=== PATIENT | male | born 1975 | race Caucasian/White ===

== ENCOUNTER 2017-06-17 09:16 | Day surgery (SDC) | payer BC ==
[2017-06-12 09:55] VITALS: BMI 29.8
[2017-06-17] MEDS ORDERED: PROPOFOL 20 ML ONE ×3 (09:37)
[2017-06-17 11:11] VITALS: PULSE 79; TEMP 98
[2017-06-17 11:17] VITALS: BP 129/68
--- NOTE | 2017-06-22 17:47 | PATH ---
Surgical Pathology Report Patient Name: [facility]. Rec. #: [id number] /Age/Gender: 1975 (Age: 42) / M Account: [id number] Location: [facility] Taken: 06/17/2017 Received: 06/17/2017 Reported: 06/22/2017 Physicians: Tess Villagran M.D. Specimen(s) Received A: SECOND PORTION OF DUODENUM B: BX ANTRUM C: BX GE JUNCTION D: BX RIGHT COLON E: BX TRANSVERSE COLON F: BX DESCENDING POLYP G: BX COLON DESCENDING H: BX RECTUM Clinical History GERD, rule out colon cancer Gastric ulcer, gastric erosion Rule out celiac, gastritis, microscopic colitis Final Diagnosis A. SECOND PORTION OF DUODENUM, BIOPSY: DUODENAL MUCOSA WITH NO PATHOLOGIC FINDINGS. Note: Features suggestive of celiac disease are not identified in this biopsy. B. ANTRUM, BIOPSY: MODERATE CHRONIC GASTRITIS. IMMUNOSTAIN IS NEGATIVE FOR H. PYLORI ORGANISMS. C. GE JUNCTION, BIOPSY: GASTRIC CARDIA-TYPE MUCOSA SHOWING MILD CHRONIC INFLAMMATION. NO INTESTINAL METAPLASIA IS IDENTIFIED. D. RIGHT COLON, BIOPSY: COLONIC MUCOSA SHOWING BENIGN/REACTIVE LYMPHOID AGGREGATE. (SEE NOTE) E. TRANSVERSE, BIOPSY: COLONIC MUCOSA WITH NO PATHOLOGIC FINDINGS. (SEE NOTE) F. DESCENDING POLYP, BIOPSY: TUBULAR ADENOMA. G. DESCENDING, BIOPSY: COLONIC MUCOSA WITH NO PATHOLOGIC FINDINGS. (SEE NOTE) H. RECTUM, BIOPSY: COLONIC/RECTAL MUCOSA WITH NO PATHOLOGIC FINDINGS. (SEE NOTE) Note: Features suggestive of microscopic colitis are not identified in these colonic and rectal biopsies. Electronically Signed Lili Hart M.D. Gross Description A. Received in formalin, labeled "second portion duodenum" are 2 morley, irregular portions of soft tissue measuring 0.2 cm. in greatest dimension. The specimens are submitted in toto in one cassette. B. Received in formalin, labeled "antrum" are 2 morley, irregular portions of soft tissue measuring 0.2 cm. in greatest dimension. The specimens are submitted in toto in one cassette. C. Received in formalin, labeled "GE junction" is a morley, irregular portion of soft tissue measuring 0.3 cm. in greatest dimension. The specimen is submitted in toto in one cassette. D. Received in formalin, labeled "right colon" are 2 morley, irregular portions of soft tissue measuring 0.2-0.3 cm. in greatest dimension. The specimens are submitted in toto in one cassette. E. Received in formalin, labeled "transverse" is a morley, irregular portion of soft tissue measuring 0.4 cm. in greatest dimension. The specimen is submitted in toto in one cassette. F. Received in formalin, labeled "descending polyp" is a morley, irregular portion of soft tissue measuring 0.3 cm. in greatest dimension. The specimen is submitted in toto in one cassette. G. Received in formalin, labeled "descending" is a morley, irregular portion of soft tissue measuring 0.4 cm. in greatest dimension. The specimen is submitted in toto in one cassette. H. Received in formalin, labeled "rectum" are 2 morley, irregular portions of soft tissue measuring 0.2 cm. in greatest dimension. The specimens are submitted in toto in one cassette. [facility]06/17/2017 [facility]06/17/2017
== END 2017-06-17 11:15 | disposition home or self-care (01) ==
LOC: FASU-ENDO 09:16
PROVIDERS: ATTEND Internal Medicine Gastroenterology
PROC: 0DBK8ZX Excision of Ascending Colon, Via Natural or Artificial Opening Endoscopic, Diagnostic (ICD-10-PCS; 2017-06-17)
PROC: 0DB98ZX Excision of Duodenum, Via Natural or Artificial Opening Endoscopic, Diagnostic (ICD-10-PCS; 2017-06-17)
PROC: 0DB68ZX Excision of Stomach, Via Natural or Artificial Opening Endoscopic, Diagnostic (ICD-10-PCS; 2017-06-17)
PROC: 0DB58ZX Excision of Esophagus, Via Natural or Artificial Opening Endoscopic, Diagnostic (ICD-10-PCS; 2017-06-17)
PROC: 0DBM8ZX Excision of Descending Colon, Via Natural or Artificial Opening Endoscopic, Diagnostic (ICD-10-PCS; principal; 2017-06-17 10:06)
PROC: 0DBL8ZX Excision of Transverse Colon, Via Natural or Artificial Opening Endoscopic, Diagnostic (ICD-10-PCS; 2017-06-17 10:06)
DX: D12.4 Benign neoplasm of descending colon (principal); K64.8 Other hemorrhoids; K29.50 Unspecified chronic gastritis without bleeding; K20.9 Esophagitis, unspecified; R10.9 Unspecified abdominal pain; R19.7 Diarrhea, unspecified
CPT/HCPCS: 88305-TC; 88342-TC

== ENCOUNTER 2017-08-03 11:27 | Emergency (ER) | payer BC ==
[2017-08-03 11:47] VITALS: BP 155/92; PULSE 122; TEMP 97.8; BMI 31.1
--- NOTE | 2017-08-03 12:01 | PDOC ---
History of Present Illness <ShekharpatChristine - Last Filed: 08/03/17 13:47> - General History Source: Patient Exam Limitations: No Limitations - History of Present Illness Initial Comments: This is a 42 yo male with h/o epilepsy with grand mal seizures (on Lamictal and Onfe), recurrent left shoulder dislocation during seizures (surgically repaired years ago but re-injured) who presents BIBA s/p two onpo-ow-urxm seizures. 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 The first seizure reportedly lasted a minute, he had a mild postictal period lasting 5 minutes during which time EMS was called, then he had a second seizure lasting 2 minutes. The patient then had a much longer postictal period with worsened confusion, difficulty understanding people around him, and mild difficulty breathing. He did not receive any medications en route to the ED. Here in the ED he notes having a headache (which is normal for after his seizures), mild left head pain where he believes he struck his head on the ground, and left shoulder pain which is typical after he dislocates it. 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 His last seizure was in June and his neurologist subsequently broke his daily Onfe dose into BID dosing. Prior to June he had not had a seizure in a few years. He has otherwise been well lately without fever, chills, nausea, vomiting , diarrhea, changes in diet, or other symptoms. <Angelo,Mary - Last Filed: 08/03/17 15:31> - General Chief Complaint: Seizure Stated Complaint: SEIZURE Time Seen by Provider: 08/03/17 12:01 Past History <Christine Baker - Last Filed: 08/03/17 13:47> - Past Medical History Anemia: No Asthma: No Cancer: No Cardiac Disorders: No CVA: No COPD: No CHF: No Dementia: No Diabetes: No GI Disorders: No Disorders: No HTN: No Hypercholesterolemia: No Liver Disease: No Seizures: Yes Thyroid Disease: No - Surgical History Abdominal Surgery: No Appendectomy: No Cardiac Surgery: No Cholecystectomy: No Lung Surgery: No Neurologic Surgery: No Orthopedic Surgery: Yes (L knee, L shoulder arthroscopy) - Psycho/Social/Smoking Cessation Hx Smoking History: Never smoked Have you smoked in the past 12 months: No Hx Alcohol Use: No Drug/Substance Use Hx: No Substance Use Type: Alcohol, Prescribed Hx Substance Use Treatment: No <Demetrice Angelo - Last Filed: 08/03/17 15:31> - Past Medical History Allergies/Adverse Reactions: Allergies Allergy/AdvReac Type Severity Reaction Status Date / Time No Known Allergies Allergy Verified 06/12/17 09:57 Home Medications: Ambulatory Orders Clobazam [Onfi] 10 mg PO BID 06/12/17 Lamotrigine [Lamictal Xr] 300 mg PO BID 06/12/17 Oxycodone HCl [Roxicodone] 15 mg PO PRN PRN 06/12/17 Testosterone Enanthate 200 mg IM WEEKLY 06/12/17 Review of Systems - Review of Systems Able to Perform ROS?: Yes Constitutional: No: Chills, Fever, Unexplained wgt Loss HEENTM: No: Nose Congestion, Throat Pain Respiratory: Yes: Shortness of Breath (resolved). No: Cough Cardiac (ROS): No: Chest Pain, Palpitations ABD/GI: No: Constipated, Diarrhea, Nausea, Vomiting : No: Burning, Dysuria Musculoskeletal: No: Back Pain, Neck Pain Integumentary: No: Bruising, Rash Neurological: Yes: Headache (mild), Seizure (x2). No: Numbness, Tingling, Weakness, Dizziness Psychiatric: Yes: Stressors, Sleep Pattern Change Endocrine: No: Unexplained Weight Gain, Unexplained Weight Loss <Demetrice Angelo - Last Filed: 08/03/17 15:31> *Physical Exam - Vital Signs Last Vital Signs Temp Pulse Resp BP Pulse Ox 97.8 F 122 H 16 155/92 99 08/03/17 11:30 08/03/17 11:30 08/03/17 11:30 08/03/17 11:30 08/03/17 11:30 <Christine Baker - Last Filed: 08/03/17 13:47> - Vital Signs Last Vital Signs Temp Pulse Resp BP Pulse Ox 97.8 F 122 H 16 155/92 99 09/11/17 11:30 08/03/17 11:30 08/03/17 11:30 08/03/17 11:30 08/03/17 11:30 - Physical Exam General Appearance: Yes: Nourished, Appropriately Dressed, Other (appears mildly anxious/stressed). No: Apparent Distress HEENT: positive: EOMI, TANIA, Normal Voice, Hearing Grossly Normal. negative: Scleral Icterus (R), Scleral Icterus (L), Nasal Congestion Neck: positive: Trachea midline, Supple. negative: Tender, Rigid Respiratory/Chest: positive: Lungs Clear, Normal Breath Sounds. negative: Respiratory Distress, Crackles, Rhonchi, Stridor, Wheezing Cardiovascular: positive: Regular Rhythm, Tachycardia. negative: Murmur Gastrointestinal/Abdominal: positive: Normal Bowel Sounds, Soft, Protuberent. negative: Tender, Organomegaly, Pulsatile Mass, Guarding Musculoskeletal: positive: Normal Inspection. negative: Decreased Range of Motion, Vertebral Tenderness Extremity: positive: Normal Capillary Refill, Normal Inspection (left shoulder with well-healed surgical scar), Normal Range of Motion, Other (left posterior shoulder tenderness to palpation with decreased ROM stated due to pain). negative: Tender, Cyanosis Integumentary: positive: Normal Color, Dry, Warm. 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 negative: EOM Palsy, Facial Droop, Numbness, Sensory Deficit, Confused, Disoriented <Demetrice Angelo - Last Filed: 08/03/17 15:31> ED Treatment Course - LABORATORY CBC & Chemistry Diagram: 08/03/17 12:10 08/03/17 12:35 - ADDITIONAL ORDERS Additional order review: Laboratory Results 08/03/17 08/03/17 12:35 12:35 Sodium 141 Potassium 3.2 L Chloride 110 H Carbon Dioxide 15 L Anion Gap 16 BUN 9 Creatinine 1.3 Creat Clearance w eGFR > 60 Random Glucose 138 H Calcium 7.2 L Phosphorus 1.0 L* Magnesium 2.8 H Total Bilirubin 0.3 AST 41 H ALT 34 Alkaline Phosphatase 73 Total Protein 5.8 L Albumin 3.3 L Phenytoin < 2.5 L 08/03/17 12:10 RBC 5.19 MCV 84.7 MCHC 32.4 RDW 16.9 H MPV 6.6 L Neutrophils % 90.8 H Lymphocytes % 3.8 L Monocytes % 4.8 Eosinophils % 0.1 Basophils % 0.5 - Medications Given in the ED: ED Medications Discontinued Medications Generic Name Dose Route Start Last Admin Trade Name Bertha PRN Reason Stop Dose Admin Acetaminophen 650 mg 08/03/17 12:32 08/03/17 12:34 Tylenol - PO 08/03/17 12:33 650 mg ONCE ONE Administration Lorazepam 1 mg 08/03/17 12:32 08/03/17 12:34 Ativan - PO 08/03/17 12:33 1 mg ONCE ONE Administration Sodium Chloride 1,000 ml 08/03/17 12:11 08/03/17 12:20 Normal Saline - IV 08/03/17 12:12 1,000 ml ONCE ONE Administration <Christine Baker - Last Filed: 08/03/17 13:47> - LABORATORY CBC & Chemistry Diagram: 08/03/17 12:10 08/03/17 12:35 <Demetrice Angelo - Last Filed: 08/03/17 15:31> Medical Decision Making - Medical Decision Making 42 yom with h/o seizures on lamotrigine and Onfe who has not seen neurologist Karie Laurent for >1 year. Last seizure was 2 wks ago, has been stressed and not sleeping but no other recent sxs. Something has decreased his seizure threshold; no infectious sxs. Other possibilities are the stress/decreased sleep, electrolyte disturbance, subtherapeutic medication levels. Ordered is CBCD, CMP, Mg, Phos, 1 mg Ativan and 650 Tylenol given. CBCD with modest WBC elevation could be explained by stress response to seizures today. Hypokalemia and hypophosphatemia noted on chemistries; repleting here in the ED. Called Karie Laurent who encourages Pt to come follow up with her KHALIDA. She understandably advises against changing his medications in the ED today. The patient still has shoulder pain and ordered is 30 mg Toradol IV. The patient's vitals normalize. He is comfortable going home and states he will follow up this week with Neuro. <Demetrice Angelo - Last Filed: 08/03/17 15:31> *DC/Admit/Observation/Transfer <Christine Baker - Last Filed: 08/03/17 13:47> - Discharge Dispostion Admit: No <Demetrice Angelo - Last Filed: 08/03/17 15:31> Diagnosis at time of Disposition: Seizure, Shoulder pain, Hypokalemia - Discharge Dispostion Disposition: HOME Condition at time of disposition: Improved - Referrals Referrals: Shiva Davis MD [Staff Physician] - - Patient Instructions Printed Discharge Instructions: Seizure Disorder -- Adult Additional Instructions: you can take ibuprofen 400 mg every 8 hours as needed for pain. you should follow up wtih your neurologist dr. Laurent, . call to schedule. you should also follow up with your psychologist or counselor. return for any problems or concerns. get plenty of sleep and drink plenty of fluids.
[2017-08-03] MEDS ORDERED: SODIUM CHLORIDE 0.9% 1000 ML INFUS.BAG IV ONE (12:11)
[2017-08-03] MEDS ORDERED: ACETAMINOPHEN 325 MG TABLET (FP) PO ONE (12:32)
[2017-08-03] MEDS ORDERED: LORazepam 1 MG TABLET PO ONE (12:32)
[2017-08-03] MEDS ORDERED: ACETAMINOPHEN 325 MG TABLET (FP) ONE (12:37)
[2017-08-03] MEDS ORDERED: LORazepam 0.5 MG TABLET ONE (12:37)
[2017-08-03 12:41] LABS: BASOPHIL 0.5 % (0-2.0); EOSINOPHIL 0.1 % (0-4.5); MCH 27.4 pg (25.7-33.7); MCHC 32.4 g/dl (32.0-35.9); MEAN CELL VOLUME 84.7 fl (80-96); MEAN PLT VOLUME 6.6 fl (7.5-11.1); NEUTROPHILS 90.8 % (42.8-82.8); PLATELET COUNT 273 K/MM3 (134-434); RDW 16.9 % (11.9-15.9); WHITE BLOOD COUNT 13.5 K/mm3 (4.0-10.0)
[2017-08-03 13:11] LABS: ALBUMIN 3.3 g/dl (3.4-5.0); ANION GAP 16 (8-16); BILIRUBIN,TOTAL 0.3 mg/dL (0.2-1.0); CALCIUM 7.2 mg/dL (8.5-10.1); CO2 15 mmol/L (21-32); CREATININE 1.3 mg/dL (0.7-1.3); GLUCOSE,RANDOM 138 mg/dL (74-106); MAGNESIUM 2.8 mg/dL (1.8-2.4); SGOT/AST 41 U/L (15-37); SGPT/ALT 34 U/L (12-78); TOT PROT 5.8 g/dl (6.4-8.2)
[2017-08-03 13:16] LABS: ALK PHOS 73 U/L (45-117)
[2017-08-03] MEDS ORDERED: POTASSIUM CHLORIDE TABS 20 MEQ TABLET.ER (FP) PO ONE ×2 (13:38→14:04)
[2017-08-03] MEDS ORDERED: KETOROLAC TROMETHAMINE 30 MG/1 ML VIAL IVPUSH ONE (13:41)
--- NOTE | 2017-08-03 13:45 | PDOC ---
Attending Attestation - Resident Resident Name: Demetrice Angelo - ED Attending Attestation I have performed the following: I have examined & evaluated the patient, The case was reviewed & discussed with the resident, I agree w/resident's findings & plan, Exceptions are as noted - Medical Decision Making 08/03/17 13:42 42 yo male with h/o seizure disorder, followed by nuerologist in [facility], and anxiety ( sees counselor). here today with two seizures, now at baseline. c/ o left shoulder pain. h/o dislocation with seizure, today believes relocated following seizure. denies benzo abuse, but has used benzo in past for anxiety, last time was one year ago. under stress financial ( lost job) and decreased sleep, child with sleeping difficulty. recenlty increased lamictal. no f/c no other complaints. on eam awake alert, head atraumatic. nuero exam normal. left shoulder mild ttp. no groove sign. abd soft nt , lungs clear heart rrr no mrg. plan : labs pain medication for shoulder. pt refusing xray shoulder. will d/w nuerologist. 08/03/17 13:46 d/w pt nuerologist. would lke to see pt in office. has not seen for a while. has been requesting ativan for anxiety, but nuerologist not prescribing it. further discussion with pt denies benzo abuse. gem other substance abuse. no si no hi. will followup with nuerology and his counselor / psychologist outpt. <Christine Baker - Last Filed: 08/03/17 13:45> - HPI HPI: 08/03/17 13:49 The patient is a 42 year old male, with a significant past medical history of Seizures who presents to the emergency department with s/p seizure today. 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 Patients seizures lasted ~2 minutes each. Patients postictal period was ~20 minutes characterized by mild confusion, dicculty understanding people and SOB. Patient dislocated his L shoulder which he subsequently relocated into place. Patient denied any tongue biting, foaming at the mouth or headache. Patient reports recent high anxiety and financial stressors. Patient is seeing a counselor for stress but not a psychologist. He has not seen neurologist for over a year. Patient denies any suicidal or homicidal ideations. He denies chest pain, headache or dizziness. He denies fever, chills, abdominal pain, nausea, vomit, diarrhea or constipation. He denies dysuria, frequency, urgency or hematuria. - Physicial Exam PE: 08/03/17 13:50 GENERAL: Awake, alert, and fully oriented, in no acute distress HEAD: No signs of trauma EYES: PERRLA, EOMI, sclera anicteric, conjunctiva clear ENT: Auricles normal inspection, nares patent, Moist mucosa NECK: Normal ROM, supple, no lymphadenopathy, JVD, or masses LUNGS: Breath sounds equal, clear to auscultation bilaterally. No wheezes, and no crackles HEART: Regular rate and rhythm, normal S1 and S2, no murmurs, rubs or gallops ABDOMEN: Soft, nontender, normoactive bowel sounds. No guarding, no rebound. No masses EXTREMITIES: Normal range of motion, no edema. No clubbing or cyanosis. No cords, erythema, or tenderness. + L shoulder pain on examination. +5/5 strength in all upper extremities. +Mild ROM of L shoulder secondary to pain. NEUROLOGICAL: Normal speech SKIN: Warm, Dry, normal turgor, no rashes or lesions noted. - Medical Decision Making 08/03/17 13:50 Documentation prepared by Aida Case, acting as center medical and lab director for Christine Baker MD <Aida Case - Last Filed: 08/03/17 13:50>
[2017-08-03] MEDS: NAPH,MB-DB/K PH,MBDB POWDER PACKET PO ONE ×2 (14:01→15:13)
[2017-08-03] MEDS ORDERED: KETOROLAC TROMETHAMINE 30 MG/1 ML VIAL ONE (14:04)
== END 2017-08-03 15:25 | disposition home or self-care (01) ==
LOC: JER 11:27
PROC: 3E0333Z Introduction of Anti-inflammatory into Peripheral Vein, Percutaneous Approach (ICD-10-PCS; principal; 2017-08-03)
DX: M24.412 Recurrent dislocation, left shoulder (principal); W20.8XXA Other cause of strike by thrown, projected or falling object, initial encounter; Y93.89 Activity, other specified; Y92.218 Other school as the place of occurrence of the external cause; Y99.0 Civilian activity done for income or pay; E87.6 Hypokalemia
CPT/HCPCS: 36415; 80053; 80175; 80185; 83735; 84100; 85025; 99283-25

== ENCOUNTER 2021-01-04 08:48 | Day surgery (SDC) | payer BC ==
[2021-01-03 11:52] VITALS: BMI 28.6
[2021-01-04 10:18] VITALS: TEMP 98.2
[2021-01-04 10:44] VITALS: BP 136/90; PULSE 80
== END 2021-01-04 10:44 | disposition home or self-care (01) ==
LOC: FASU-ENDO 08:48
PROVIDERS: ATTEND Internal Medicine Gastroenterology
PROC: 0DB78ZX Excision of Stomach, Pylorus, Via Natural or Artificial Opening Endoscopic, Diagnostic (ICD-10-PCS; 2021-01-04)
PROC: 0DB48ZX Excision of Esophagogastric Junction, Via Natural or Artificial Opening Endoscopic, Diagnostic (ICD-10-PCS; 2021-01-04)
PROC: 0DB98ZX Excision of Duodenum, Via Natural or Artificial Opening Endoscopic, Diagnostic (ICD-10-PCS; principal; 2021-01-04 09:50)
DX: K29.80 Duodenitis without bleeding (principal); K25.9 Gastric ulcer, unspecified as acute or chronic, without hemorrhage or perforation; K22.8 Other specified diseases of esophagus; K21.9 Gastro-esophageal reflux disease without esophagitis
CPT/HCPCS: 88305-TC; 88342-TC

== ENCOUNTER 2021-03-15 12:19 | Day surgery (SDC) | payer BC ==
[2021-03-11 12:53] VITALS: BMI 28.2
[2021-03-15 14:17] VITALS: TEMP 97.5
[2021-03-15 14:34] VITALS: BP 128/74; PULSE 72
== END 2021-03-15 15:06 | disposition home or self-care (01) ==
LOC: FASU-ENDO 12:19
PROVIDERS: ATTEND Internal Medicine Gastroenterology
PROC: 0DBN8ZX Excision of Sigmoid Colon, Via Natural or Artificial Opening Endoscopic, Diagnostic (ICD-10-PCS; 2021-03-15)
PROC: 0DB98ZX Excision of Duodenum, Via Natural or Artificial Opening Endoscopic, Diagnostic (ICD-10-PCS; 2021-03-15)
PROC: 0DB78ZX Excision of Stomach, Pylorus, Via Natural or Artificial Opening Endoscopic, Diagnostic (ICD-10-PCS; 2021-03-15)
PROC: 0DB48ZX Excision of Esophagogastric Junction, Via Natural or Artificial Opening Endoscopic, Diagnostic (ICD-10-PCS; 2021-03-15)
PROC: 0DBP8ZX Excision of Rectum, Via Natural or Artificial Opening Endoscopic, Diagnostic (ICD-10-PCS; principal; 2021-03-15 13:39)
DX: Z12.11 Encounter for screening for malignant neoplasm of colon (principal); K21.00 Gastro-esophageal reflux disease with esophagitis, without bleeding; K29.50 Unspecified chronic gastritis without bleeding; K63.3 Ulcer of intestine; K57.30 Diverticulosis of large intestine without perforation or abscess without bleeding; K64.8 Other hemorrhoids; R10.13 Epigastric pain; K63.89 Other specified diseases of intestine; Z86.010 Personal history of colon polyps
CPT/HCPCS: 88305-TC; 88342-TC

== ENCOUNTER 2021-06-04 12:08 | Day surgery (SDC) | payer BC ==
[2021-05-30 16:32] VITALS: BMI 28.5
[2021-06-04 16:48] VITALS: TEMP 98
[2021-06-04 16:52] VITALS: PULSE 81
[2021-06-04 16:55] VITALS: BP 126/80
== END 2021-06-04 15:00 | disposition home or self-care (01) ==
LOC: FASU-ENDO 12:08
PROVIDERS: ATTEND Internal Medicine Gastroenterology
PROC: 0DJD8ZZ Inspection of Lower Intestinal Tract, Via Natural or Artificial Opening Endoscopic (ICD-10-PCS; principal; 2021-06-04 13:13)
DX: Z86.010 Personal history of colon polyps (principal); K64.1 Second degree hemorrhoids; K57.30 Diverticulosis of large intestine without perforation or abscess without bleeding